=== PATIENT | female | born 1950 | race Caucasian/White ===

== ENCOUNTER 2017-03-17 14:51 | Emergency (ER) | payer OTHER, MEDICARE ==
[2017-03-17 15:02] VITALS: TEMP 98.2
[2017-03-17] MEDS ORDERED: NS 500 ML IV ONE (15:08)
--- NOTE | 2017-03-17 15:13 | EDPHY ---
H & P Time Seen by Provider: 03/17/17 15:03 HPI/ROS: HPI Shortness of breath, lightheaded. 66-year-old female by private vehicle with her . She has a history of asthma. She was recently treated for both an asthma exacerbation and bronchitis. This treatment included 5 days of prednisone at 60 mg a day with no taper and a Z-Nitesh. She finished this on Friday. She presents the emergency department today complaining of some mild shortness of breath and lightheaded, feeling spacey. She states this has been present since earlier this morning. She describes her shortness of breath has not typical of her asthma but not being able to get enough air when I take a deep breath. She denies chest pain. She states that she thinks her heart rate has been running faster than usual. No other complaints. ROS: Constitutional: No fever, no chills. As above. Eyes: No discharge. No changes in vision. ENT: No sore throat. No nasal congestion or rhinorrhea. Respiratory: No cough. As above. Cardiac: No chest pain, no palpitations. Gastrointestinal: No abdominal pain, no vomiting, no diarrhea. Genitourinary: No hematuria. No dysuria or increased frequency with urination. Musculoskeletal: No back pain. No neck pain. No myalgias or arthralgias. Skin: No rashes. Neurological: No headache. No focal weakness or altered sensation. Past medical history: Asthma, hypothyroid, hyperlipidemia, osteoporosis. Social history: Nonsmoker. No alcohol. Here with her . Physical Exam: General Appearance: Alert, no distress. This patient is responding to questions appropriately and in full sentences. This patient appears well- hydrated and well-nourished. Eyes: Pupils equal and round no pallor or injection. No lid edema, erythema or injection. Respiratory: There are no retractions, lungs are clear to auscultation with good air movement bilaterally. No tachypnea. No wheezing. No rhonchi. Cardiovascular: Regular rate and rhythm. No murmur appreciated. Gastrointestinal: Abdomen is soft and nontender, no masses, bowel sounds normal. No focal tenderness at McBurney's point. No O[place]o sign. Neurological: Motor sensory function is grossly intact. Cranial nerves are normal. Gait is normal. Skin: Warm and dry, no rashes. Musculoskeletal: Neck is supple and nontender. Extremities are symmetrical. All joints range without pain or impingement. Psychiatric: No agitation. No depression. Database: EKG: EKG time is 3:20 p.m.; EKG shows a narrow complex normal sinus rhythm with a ventricular rate of 80. Probable left anterior fascicular block. The DE, QRS, QT intervals are within normal limits. There are no ST-T wave changes indicative of ischemic or injury pattern. No evidence of right heart strain. Interpreted by me. Imaging: Chest x-ray AP portable; the cardiac mediastinal silhouette is unremarkable. No evidence of infiltrate or pneumothorax. No acute cardiopulmonary disease process noted. Interpreted by me. Procedures: Emergency department course: IV placed. She was placed on a monitor. EKG performed. She was started on IV normal saline with 500 cc to be given over the next hour. Her vital signs have been reviewed and are normal except for some mild hypertension. She is 96% on room air. Patient re-evaluated. She is resting comfortably at this time. Her vital signs are reviewed and are normal. She denies any complaints now. No dyspnea. No chest discomfort. Results of her emergency department workup were discussed with her. I discussed further observation in the emergency department but she declined. She feels comfortable going home with her and is requesting discharge. Follow-up and return to emergency department precautions have been reviewed with her. All of her questions were answered. She was discharged from the emergency department in good condition. Differential Diagnosis: The differential diagnosis on this patient includes but is not limited to resolving asthma exacerbation, pulmonary embolism, acute coronary syndrome, congestive heart failure, bronchitis, thyroid problem. This represents a partial list of diagnoses considered. These considerations are based on history , physical exam, past history, reassessment and diagnostic testing. Smoking Status: Never smoked Constitutional: Initial Vital Signs Temperature (C) 36.8 C 03/17/17 14:55 Heart Rate 94 03/17/17 14:55 Respiratory Rate 18 03/17/17 14:55 Blood Pressure 140/88 H 03/17/17 14:55 O2 Sat (%) 96 03/17/17 14:55 O2 Delivery Mode Room Air Allergies/Adverse Reactions: ibandronate sodium [From [facility]] Allergy (Unknown, Verified 03/17/17 14:57) Lobster & Crab Allergy (Uncoded 03/01/14 13:48) Anaphylaxis seasonal Allergy (Uncoded 01/19/14 14:08) Home Medications: Medication Instructions Recorded Qvar 08/13/10 SIMVASTATIN 08/13/10 SYNTHROID 08/13/10 Aspirin [Aspirin 81mg (*)] 81 mg PO DAILY 03/17/17 Olendranate 03/17/17 Medical Decision Making - Diagnostics Imaging Results: Imaging Impressions Chest X-Ray 03/17/17 15:08 Impression: No acute findings in the chest. - Data Points Laboratory Results: Laboratory Results 03/17/17 15:30 03/17/17 15:30 03/17/17 03/17/17 03/17/17 15:30 15:30 15:30 WBC 12.02 10^3/uL H 10^3/uL (3.80-9.50) RBC 4.77 10^6/uL 10^6/uL (4.18-5.33) Hgb 15.2 g/dL g/dL (12.6-16.3) Hct 44.8 % % (38.0-47.0) MCV 93.9 fL fL (81.5-99.8) MCH 31.9 pg pg (27.9-34.1) MCHC 33.9 g/dL g/dL (32.4-36.7) RDW 13.2 % % (11.5-15.2) Plt Count 282 10^3/uL 10^3/uL (150-400) MPV 10.2 fL fL (8.7-11.7) Neut % (Auto) 54.4 % % (39.3-74.2) Lymph % (Auto) 36.4 % % (15.0-45.0) [place] % (Auto) 6.3 % % (4.5-13.0) Eos % (Auto) 0.9 % % (0.6-7.6) Baso % (Auto) 0.3 % % (0.3-1.7) Nucleat RBC Rel Count 0.0 % % (0.0-0.2) Absolute Neuts (auto) 6.54 10^3/uL H 10^3/uL (1.70-6.50) Absolute Lymphs (auto) 4.37 10^3/uL H 10^3/uL (1.00-3.00) Absolute Monos (auto) 0.76 10^3/uL 10^3/uL (0.30-0.80) Absolute Eos (auto) 0.11 10^3/uL 10^3/uL (0.03-0.40) Absolute Basos (auto) 0.04 10^3/uL 10^3/uL (0.02-0.10) Absolute Nucleated RBC 0.00 10^3/uL 10^3/uL (0-0.01) Immature Gran % 1.7 % H % (0.0-1.1) Immature Gran # 0.20 10^3/uL H 10^3/uL (0.00-0.10) D-Dimer < 0.27 ug/mLFEU ug/mLFEU (0.00-0.50) Sodium 140 mEq/L mEq/L (134-144) Potassium 4.2 mEq/L mEq/L (3.5-5.2) Chloride 105 mEq/L mEq/L (97-110) Carbon Dioxide 22 mEq/l mEq/l (22-31) Anion Gap 13 mEq/L mEq/L (8-16) BUN 34 mg/dL H mg/dL (7-23) Creatinine 0.9 mg/dL mg/dL (0.6-1.0) Estimated GFR > 60 Glucose 101 mg/dL H mg/dL (70-100) Calcium 9.3 mg/dL mg/dL (8.5-10.4) Creatine Kinase 60 IU/L IU/L (0-156) CK-MB (CK-2) Fraction 2.01 ng/mL ng/mL (0-3.19) Troponin I < 0.012 ng/mL ng/mL (0-0.034) NT-Pro-B Natriuret Pep 249 pg/mL H pg/mL (0-125) TSH 1.970 uIU/mL uIU/mL (0.465-4.680) Medications Given: Discontinued Medications Sodium Chloride (Ns) 500 mls @ 1,000 mls/hr IV ONCE ONE PRN Reason: Protocol Stop: 03/17/17 15:37 Last Admin: 03/17/17 15:34 Dose: 500 mls Departure - Departure Disposition: Home, Routine, Self-Care Clinical Impression: Dyspnea, Lightheaded Condition: Good Instructions: Dyspnea (ED), Lightheadedness (ED) Additional Instructions: Read and follow provided instructions. Follow-up with your primary care physician tomorrow for re-evaluation. Take her medication as prescribed only. No strenuous activity until you have been cleared by your primary care physician. Return to the emergency department for worsening symptoms, worsening shortness of breath, any chest pain, fever or other serious concerns. Referrals: Sahara Santiago MD [Primary Care Provider] - As per Instructions
--- NOTE | 2017-03-17 15:24 | CPEKG ---
Heart Rate: 80 RR Interval: 750 P-R Interval: 148 QRSD Interval: 90 QT Interval: 368 QTC Interval: 425 P [place]: 61 QRS [place]: -62 T Wave [place]: 20 EKG Severity - ABNORMAL ECG - EKG Impression: SINUS RHYTHM EKG Impression: LAD, CONSIDER LEFT ANTERIOR FASCICULAR BLOCK Electronically Signed By: Kiran Meraz 17-Mar-2017 20:06:31
[2017-03-17 15:34] LABS: % IMMATURE GRANULYOCYTES 1.7 % (0.0-1.1); ADD DIFF? NO; ADD MORPH? NO; ADD SCAN? NO; ATYPICAL LYMPHOCYTE FLAG 0 (0-99); FRAGMENT RBC FLAG 0 (0-99); HEMATOCRIT 44.8 % (38.0-47.0); HEMOGLOBIN 15.2 g/dL (12.6-16.3); LEFT SHIFT FLG 10 (0-99); LIPEMIA HEMOLYSIS FLAG 90 (0-99); MEAN CELL HEMOGLOBIN 31.9 pg (27.9-34.1); MEAN CELL HEMOGLOBIN CONCENTR. 33.9 g/dL (32.4-36.7); MEAN CELL VOLUME 93.9 fL (81.5-99.8); MEAN PLATELET VOLUME 10.2 fL (8.7-11.7); PLATELET CLUMPS FLAG 0 (0-99); PLATELET COUNT 282 10^3/uL (150-400); RED BLOOD CELL COUNT 4.77 10^6/uL (4.18-5.33); RED CELL DISTRIBUTION WIDTH 13.2 % (11.5-15.2)
[2017-03-17 15:45] LABS: ANION GAP 13 mEq/L (8-16); CARBON DIOXIDE 22 mEq/l (22-31); CHLORIDE 105 mEq/L (97-110); CREATININE 0.9 mg/dL (0.6-1.0); GLUCOSE 101 mg/dL (70-100); POTASSIUM 4.2 mEq/L (3.5-5.2); SODIUM 140 mEq/L (134-144)
[2017-03-17 15:46] LABS: CALCIUM 9.3 mg/dL (8.5-10.4); GLOMERULAR FILTRATION RATE > 60
[2017-03-17 15:57] LABS: CREATINE KINASE-MB FRACTION 2.01 ng/mL (0-3.19); TROPONIN I < 0.012 ng/mL (0-0.034)
[2017-03-17 17:03] VITALS: BP 106/68; PULSE 72; RESP 21; O2SAT 94
== END 2017-03-17 17:02 | disposition home or self-care (01) ==
DX: R42 Dizziness and giddiness (principal); R06.00 Dyspnea, unspecified; J45.909 Unspecified asthma, uncomplicated; Z79.82 Long term (current) use of aspirin

== ENCOUNTER → 2018-03-10 | Outpatient (CLI) | payer OTHER, MEDICARE | LOC: FIMAGING 12:30 | PROVIDERS: ATTEND Family Medicine | DX: Z12.31 Encounter for screening mammogram for malignant neoplasm of breast (principal) ==

== ENCOUNTER → 2018-06-02 | Outpatient (CLI) | payer OTHER, MEDICARE | LOC: FIMAGING 08:33 | PROVIDERS: ATTEND Internal Medicine Rheumatology | DX: Z13.820 Encounter for screening for osteoporosis (principal); M85.89 Other specified disorders of bone density and structure, multiple sites; Z78.0 Asymptomatic menopausal state; Z82.62 Family history of osteoporosis ==

== ENCOUNTER → 2019-01-19 | Outpatient (CLI) | payer OTHER, MEDICARE | LOC: BMCIMAGING 08:39 | PROVIDERS: ATTEND Internal Medicine Rheumatology | DX: M19.041 Primary osteoarthritis, right hand (principal) ==